=== PATIENT | female | born 1990 | race Caucasian/White ===

== ENCOUNTER 2019-08-01 08:57 | Emergency (ER) | payer OTHER ==
[~2019-08-01] VITALS: Ht 160 cm; Wt 79.4 kg
[2019-08-01 09:11] VITALS: BP 140/83
[2019-08-01 09:15] VITALS: BP 140/83
--- NOTE | 2019-08-01 09:16 | NUR ---
ARRIVAL PATIENT ARRIVED TO [facility], C/O OF BACK PAIN FOR THE PAST 2 DAYS, HAS ATTEMPTED TO TREAT HERSELF AT HOME WITH NO RELIEF, DOES HAVE A HISTORY OF BACK PAIN BUT UNSURE IF SHE MIGHT HAVE A URINARY TRACT INFECTION. CAME TO THE ED FOR EVAL.
[2019-08-01] MEDS ORDERED: NORFLEX IM STA (09:17)
--- NOTE | 2019-08-01 09:26 | ER.PDOC ---
General Chief Complaint: Lower Back Pain or Injury Stated Complaint: BACK PAIN Time seen by MD: 09:11 Source: patient Exam Limitations: no limitations History of Present Illness Initial Comments Pt c/o lower back pain, L>R, started gradually about 2 days ago, has worsened since. No fever, dysuria, rash. Hurts with bending, twisting. Severity/Quality: moderate Modifying Factors: worse with jarring, worse with movement Associated Symptoms: muscle spasms Prior symptoms/Treatment: Similar symptoms previous; No Recenly Seen, No Treated by Doctor Allergies: Coded Allergies: loracarbef (Verified Allergy, Unknown, 08/01/19) Past Medical History Medical History: no pertinent history Surgical History: back Family History Significant Family History: no pertinent family hx Social History Alcohol Use: none Drug Use: marijuana Review of Systems Constitutional: no symptoms reported; denies chills, denies fever, denies malaise EENTM: no symptoms reported; denies nose congestion, denies throat pain Respiratory: no symptoms reported Cardiovascular: no symptoms reported; denies chest pain, denies syncope Gastrointestinal: no symptoms reported; denies abdominal pain, denies diarrhea, denies nausea, denies vomiting Genitourinary: no symptoms reported; denies discharge, denies dysuria, denies frequency, denies hematuria Musculoskeletal: see HPI, back pain; denies gout, denies joint swelling; muscle pain Skin: no symptoms reported; denies change in color, denies rash Psychiatric/Neurological: no symptoms reported; denies headache, denies numbness, denies paresthesia, denies seizure, denies tingling Physical Exam General Appearance: Other (uncomfortable) HEENT: PERRL/EOMI, Normal ENT Inspection, Pharynx Normal Neck: Non-Tender, Normal Alignment, Nexus criteria neg, Normal Inspection Cardiovascular/Respiratory: Regular Rate, Rhythm, No M/R/G, Normal Peripheral Pulses, No JVD, Normal Breath Sounds, No Respiratory Distress Gastrointestinal: Normal Bowel Sounds, No Organomegaly, No Pulsatile Mass, Non Tender Back: Other (tender to palpation in lumbar region, both in midline and paraspinal muscles. 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, mood/effect nml, No Motor/Sensory Deficits Skin: Normal Color, Warm/Dry Results/Orders Results/Orders Orders - SOILA FRANCO DO Hcg Qualitative Serum (08/01/19 09:17) Urinalysis (08/01/19 09:17) Xr Lspine 2-3v (08/01/19 09:17) Ketorolac Tromethamine (Toradol) (08/01/19 09:30) Orphenadrine Citrate (Norflex) (08/01/19 09:17) Ketorolac Tromethamine (Toradol) (08/01/19 09:28) Orphenadrine Citrate (Norflex) (08/01/19 09:29) Vital Signs Date Time Temp Pulse Resp B/P (MAP) Pulse Ox O2 Delivery O2 Flow Rate FiO2 08/01/19 11:00 98.2 80 18 99 Room Air 08/01/19 09:15 98.2 80 18 99 Room Air 08/01/19 09:11 98.2 80 18 08/01/19 09:11 98.2 80 18 99 Administered Medications Medications (Trade) Dose Ordered Sig/Theo Route PRN Reason Start Time Stop Time Status Last Admin Dose Admin Ketorolac Tromethamine (Toradol) 60 mg OT ONCE IM 08/01/19 09:30 08/01/19 09:31 DC 08/01/19 09:37 60 MG Orphenadrine Citrate (Norflex) 60 mg STAT STAT IM 08/01/19 09:17 08/01/19 09:22 DC 08/01/19 09:38 60 MG Laboratory Tests Test 08/01/19 09:15 08/01/19 09:33 Urine Collection Type URINE BAG Urine Color YELLOW (YELLOW) Urine Appearance CLEAR (CLEAR) Urine Bilirubin NEGATIVE MG/DL (NEGATIVE) Urine Ketones NEGATIVE (NEGATIVE) Urine Specific [place] 1.015 (1.005-1.035) Urine pH 5 (5.0-6.0) Urine Protein NEGATIVE (NEGATIVE) Urine Urobilinogen NEGATIVE (NEGATIVE) Urine Nitrate NEGATIVE (NEGATIVE) Urine Leukocyte Esterase NEGATIVE (NEGATIVE) Urine Blood NEGATIVE (NEGATIVE) Urine Glucose NORMAL (NEGATIVE) Serum HCG, Qualitative NEGATIVE (NEGATIVE) Departure Time of Disposition: 11:05 Disposition: 01 HOME, SELF-CARE Impression: Primary Impression: Musculoskeletal back pain Condition: Stable Referrals: PCP,UNKNOWN (PCP) PRIMARY CARE PROVIDER Duration or Time Spent with Pa: 25 SOILA FRANCO DO Aug 01, 2019 09:26
[2019-08-01] MEDS ORDERED: TORADOL ONE (09:28)
[2019-08-01] MEDS ORDERED: NORFLEX ONE (09:29)
[2019-08-01] MEDS ORDERED: TORADOL IM ONE (09:30)
--- NOTE | 2019-08-01 10:08 | NUR ---
LAB CALLED LAB IN REGARDS TO [facility], JUST NOT ABLE TO GET TO [facility], DOCTOR JOAN NOTIFIED.
[2019-08-01 10:25] LABS: APPEARANCE,URINE CLEAR (CLEAR); BILIRUBIN,URINE NEGATIVE (NEGATIVE); UA COLOR YELLOW (YELLOW); UROBILINOGEN,URINE NEGATIVE (NEGATIVE)
--- NOTE | 2019-08-01 10:30 | NUR ---
XRAY CALLED XRAY IN REGARD TO XRAY, WAS WAITING FOR PRENANCY TEST AND NOW CURRENTLY HAVE A PATIENT ON THE TABLE. WILL BE TO ED SOON POSSIBLE.
--- NOTE | 2019-08-01 10:51 | NUR ---
XRAY PATIENT TO XRAY
--- NOTE | 2019-08-01 10:56 | DIREP ---
PROCEDURE:XRAY SPINE LUMBAR 2-3 VWS COMPARISON:MR, MRI SPINE LUMBAR W/O, 09/30/2016, 01:27 PM. INDICATIONS:low back pain, hx spinal surgery FINDINGS: ALIGNMENT:Mild lumbar levoscoliosis. VERTEBRAE:Normal. DISK SPACES:Moderate/severe L4/5 and L5/S1 disc space narrowing. Lower facet arthrosis. SPONDYLOLISTHESIS:None. SACROILIAC JOINTS:Normal. OTHER:Normal. CONCLUSION:Lower lumbar disc degenerative changes and mild levoscoliosis. Dictated by: Eve Cobian MD on 08/01/2019 at 10:53 AM
[2019-08-01 11:00] VITALS: BP 156/85
== END 2019-08-01 11:12 | disposition home or self-care (01) ==
LOC: ER 08:57
DX: M62.830 Muscle spasm of back (principal); M54.5 Low back pain; F12.10 Cannabis abuse, uncomplicated; Z79.1 Long term (current) use of non-steroidal anti-inflammatories (NSAID)
CPT/HCPCS: 36415; 72100; 81002; 84703; 96372; 99284; J1885; J2360

== ENCOUNTER 2020-02-25 08:55 | Emergency (ER) | payer OTHER ==
[~2020-02-25] VITALS: Ht 160 cm; Wt 81.6 kg
[2020-02-25 09:11] VITALS: BP 134/71
[2020-02-25] MEDS ORDERED: NORCO 10MG PO STA (09:12)
[2020-02-25] MEDS ORDERED: LOMOTIL PO STA (09:12)
--- NOTE | 2020-02-25 09:46 | ER.PDOC ---
General Chief Complaint: Influenza Stated Complaint: FEVER,BODYACHE,CONGESTION,NO SMELL Time seen by MD: 09:44 Source: patient Exam Limitations: no limitations History of Present Illness Initial Comments covid concern Context: out of country/travel Severity/Quality: mild Associated Symptoms (diarrhea): watery Allergies: Coded Allergies: loracarbef (Verified Allergy, Unknown, 08/01/19) Vital Signs First Vital Signs Date Time Temp Pulse Resp B/P (MAP) Pulse Ox O2 Delivery O2 Flow Rate FiO2 02/25/20 09:11 99.0 83 14 100 Last Vital Signs Date Time Temp Pulse Resp B/P (MAP) Pulse Ox O2 Delivery O2 Flow Rate FiO2 02/25/20 09:11 99.0 83 14 100 Past Medical History Medical History: no pertinent history Surgical History: Social History Alcohol Use: none Drug Use: marijuana Reviewed Nursing Reviewed: Vital Signs, Abn. Noted All Other Systems: Reviewed and Negative Physical Exam General Appearance: No Apparent Distress, WD/WN HEENT: PERRL/EOMI, Normal ENT Inspection, TMs Normal, Pharynx Normal Neck: Non-Tender, Full Range of Motion, Supple, Normal Inspection Respiratory: chest non-tender, lungs clear, normal breath sounds, no respiratory distress, no accessory muscle use Cardiovascular: Tachycardia Gastrointestinal: Normal Bowel Sounds, Non Tender, Soft Back: Normal Inspection, No CVA Tenderness, No Vertebral Tenderness Extremities: Normal Range of Motion, Non-Tender, Normal Inspection, No Pedal E rajinder, No Calf Tenderness, Normal Capillary Refill, Pelvis Stable Neurologic/Psychiatric: 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 as Tested, No Motor/Sensory Deficits, Alert, Normal Mood/Affect, Oriented x 3 Skin: Normal Color, Warm/Dry Lymphatic: No Adenopathy Results/Orders Results/Orders Orders - PRATIBHA MANTILLA MD Covid19 Antigen Eliz Jo (02/25/20 09:11) Influenza A&B (02/25/20 09:11) Diphenoxylate Hcl/Atropine (Lomotil) (02/25/20 09:12) Hydrocodone/Acetaminophen ([place] 10mg) (02/25/20 09:12) Vital Signs Date Time Temp Pulse Resp B/P (MAP) Pulse Ox O2 Delivery O2 Flow Rate FiO2 02/25/20 09:11 99.0 83 14 100 02/25/20 09:11 99.0 83 14 100 Administered Medications Medications (Trade) Dose Ordered Sig/Theo Route PRN Reason Start Time Stop Time Status Last Admin Dose Admin Acetaminophen/ Hydrocodone Bitart ([place] 10mg) 1 each STAT STAT PO 02/25/20 09:12 02/25/20 09:14 DC 02/25/20 09:25 1 EACH Diphenoxylate HCl/ Atropine (Lomotil) 2 each STAT STAT PO 02/25/20 09:12 02/25/20 09:14 DC 02/25/20 09:51 2 EACH Laboratory Tests Test 02/25/20 09:05 02/25/20 09:30 SARS-CoV-2 Antigen (Rapid) NEGATIVE (NEGATIVE) Influenza Type A Antigen NEGATIVE (NEG) Influenza B Immunofluorescence NEGATIVE (NEG) ER DEPART Departure Time of Disposition: 10:00 Disposition: 01 HOME, SELF-CARE Impression: Primary Impression: Viral infection Condition: Stable Referrals: PCP,UNKNOWN (PCP) PRIMARY CARE PROVIDER Duration or Time Spent with Pa: [place] PRATIBHA MANTILLA MD Feb 25, 2020 09:46
== END 2020-02-25 10:00 | disposition home or self-care (01) ==
LOC: ER 08:55
DX: B34.9 Viral infection, unspecified (principal); R19.7 Diarrhea, unspecified; F12.90 Cannabis use, unspecified, uncomplicated; Z20.822 Contact with and (suspected) exposure to COVID-19
CPT/HCPCS: 87426; 87804; 99283

== ENCOUNTER 2023-05-16 14:05 | Emergency (ER) | payer OTHER ==
[~2023-05-16] VITALS: Ht 157.5 cm; Wt 79.4 kg
[2023-05-16 14:15] VITALS: BP 119/89; PULSE 106; RESP 18; TEMP 98.2; O2SAT 99
== END 2023-05-16 14:26 | disposition home or self-care (01) ==
LOC: ER 14:05
DX: L73.9 Follicular disorder, unspecified (principal); B95.62 Methicillin resistant Staphylococcus aureus infection as the cause of diseases classified elsewhere; F12.90 Cannabis use, unspecified, uncomplicated; Z98.890 Other specified postprocedural states
CPT/HCPCS: 99283

== ENCOUNTER 2023-12-05 13:26 | Emergency (ER) | payer SELFPAY ==
[~2023-12-05] VITALS: Ht 160 cm; Wt 77.1 kg
[2023-12-05 13:26] VITALS: BP 119/73; PULSE 90; RESP 20; TEMP 98.3; O2SAT 100
[2023-12-05 14:31] LABS: BILIRUBIN,URINE 1+ (NEGATIVE); LEUKOCYTE ESTERASE ,URINE NEGATIVE (NEGATIVE); NITRATE,URINE POSITIVE (NEGATIVE); PH,URINE 5.5 (4.5-8.0); UROBILINOGEN,URINE 0.2 E.U./dL (0.2)
[2023-12-05 14:48] LABS: APPEARANCE,URINE CLOUDY; UA COLOR YELLOW
[2023-12-05 15:04] VITALS: BP 122/77; PULSE 90; RESP 20; TEMP 98.3; O2SAT 100
== END 2023-12-05 15:04 | disposition home or self-care (01) ==
LOC: ER 13:26
DX: N39.0 Urinary tract infection, site not specified (principal); H66.91 Otitis media, unspecified, right ear; L03.211 Cellulitis of face; Z98.890 Other specified postprocedural states
CPT/HCPCS: 81001; 81025; 87077; 87086; 87186; 99283